=== PATIENT | male | born 1980 | race Caucasian/White ===

== ENCOUNTER → 2017-07-15 | Outpatient (REF) | payer OTHER ==
[2017-07-15 18:01] LABS: INFLUENZA A AMPLIFICATION NEGATIVE (NEGATIVE); INFLUENZA B AMPLIFICATION NEGATIVE (NEGATIVE); RSV AMPLIFICATION NEGATIVE (NEGATIVE)
== END ==
LOC: M LAB REF 14:21
DX: Z11.59 Encounter for screening for other viral diseases (principal)
CPT/HCPCS: 87631

== ENCOUNTER → 2017-08-15 | Outpatient (REF) | payer BC, OTHER ==
[2017-08-15 22:05] LABS: INFLUENZA A AMPLIFICATION NEGATIVE (NEGATIVE); INFLUENZA B AMPLIFICATION NEGATIVE (NEGATIVE)
== END ==
LOC: M LAB REF 21:16
DX: J11.1 Influenza due to unidentified influenza virus with other respiratory manifestations (principal)
CPT/HCPCS: 87070

== ENCOUNTER 2022-06-01 23:15 | Emergency (ER) | payer BC, OTHER, SELFPAY ==
[~2022-06-01] VITALS: Ht 177.8 cm; Wt 92.6 kg
[2022-06-01 23:16] VITALS: BP 141/88
== END 2022-06-02 02:54 | disposition left against medical advice (07) ==
LOC: M ED 23:15
DX: Z53.21 Procedure and treatment not carried out due to patient leaving prior to being seen by health care provider (principal)